=== PATIENT | female | born 1970 | race Two or more races ===

== ENCOUNTER 2023-04-01 08:51 | Outpatient (REF) | payer MEDICAID, SELFPAY ==
[2023-04-01 09:45] LABS: Anion Gap 12 (12-20); Blood Urea Nitrogen 9 mg/dL (9-16); Calcium 9.4 mg/dL (8.4-10.2); Carbon Dioxide 27 mmol/L (22-29); Chloride 108 mmol/L (96-108); Estimated Glomerular Filt Rate > 60; Glucose Random 104 mg/dL (60-115); Potassium 4.2 mmol/L (3.3-5.1); Sodium 143 mmol/L (135-145)
[2023-04-01 10:00] LABS: Erythrocyte Sedimentation Rate 12 MM/HR (0-20)
== END 2023-04-01 08:52 | disposition home or self-care (01) ==
LOC: HO.LAB 08:51
PROVIDERS: Visit Provider Psychiatry & Neurology Neurology
DX: G50.0 Trigeminal neuralgia (principal)
CPT/HCPCS: 36415; 80048; 85652